=== PATIENT | male | born 1945 | race Caucasian/White ===

== ENCOUNTER 2021-09-23 09:01 | Outpatient (REF) | payer OTHER, SELFPAY ==
--- NOTE | ~2021-09-23 | XR_ITS ---
EXAMINATION: XR CLAVICLE, RIGHT CLINICAL INFORMATION: Pain and swelling status-post fall. COMPARISON: None TECHNIQUE: Straight AP and cephalad angulated AP views of the right clavicle. FINDINGS: Bony alignment and mineralization are normal. The right glenohumeral joint is intact. The right acromioclavicular and coracoclavicular intervals are normal. There is mild osteoarthritic change of the acromioclavicular joint. Minimal ossific fragments are noted adjacent to the acromioclavicular joint, which are likely degenerative given the absence of donor sites. Less likely, these could represent minimal avulsion fragments. There is focal soft tissue swelling adjacent to the acromioclavicular joint. No foreign body is seen. There is no right pneumothorax. XR/XR clavicle RT IMPRESSION: There is mild osteoarthritic change of the right acromioclavicular joint. Minimal calcific densities adjacent to the right acromioclavicular joint are likely degenerative in origin, with tiny avulsion fragments considered less likely. Please correlate clinically. No acromioclavicular or coracoclavicular separation injury is noted. There is soft tissue swelling adjacent to the right acromioclavicular joint.
== END 2021-09-23 09:02 | disposition home or self-care (01) ==
LOC: HO.XRAY 09:01
PROVIDERS: PCP Family Medicine; Visit Provider Family Medicine
DX: M25.511 Pain in right shoulder (principal); R60.0 Localized edema
CPT/HCPCS: 73000

== ENCOUNTER 2022-02-27 06:25 | Day surgery (SDC) | payer OTHER, SELFPAY ==
--- NOTE | 2022-02-26 10:09 | P.CONAN_ITS ---
Documented by User: Christen Johns NP 02/26/22 10:09 HPI - Anesthesia Eval Consult details Narrative: 77yo M for Colonoscopy [facility] Past Medical History Medical History (Updated 02/26/22 @ 08:14 by Phillip Reyez RN) Colon polyps COPD, mild GERD (gastroesophageal reflux disease) Surgical History Surgical History (Updated 02/26/22 @ 08:15 by Phillip Reyez RN) History of appendectomy History of colonoscopy History of meniscectomy of right knee Social History Social History (Updated 02/26/22 @ 08:19 by Phillip Reyez RN) Patient Tobacco Use Status: Former Tobacco user Use of substances other than those prescribed or required for medical reasons: No Are you DNR?: No Advance Directives: No Advance Directives Information Provided: Yes Meds Allergies Allergy/AdvReac Type Severity Reaction Status Date / Time Cephalosporins Allergy Severe Anaphylaxis Verified 02/27/22 06:45 Home Medications Medication Instructions Recorded Confirmed Last Taken Type omeprazole 20 mg capsule,delayed 20 mg PO DAILY 02/26/22 02/26/22 Unknown History release trazodone 100 mg tablet 1 tab PO BEDTIME 02/26/22 02/26/22 Unknown History Exam Exam Date and Time: February 26, 2022 1009 Assessment and Plan Assessment Anesthesia Assessment: Chart Reviewed Documented by User: Joseluis Martin MD 02/27/22 07:28 [facility] Past Medical History Medical History (Updated 02/26/22 @ 08:14 by Phillip Reyez RN) Colon polyps COPD, mild GERD (gastroesophageal reflux disease) Family History Family history of problems with anesthesia: No Surgical History Surgical History (Updated 02/26/22 @ 08:15 by Phillip Reyez RN) History of appendectomy History of colonoscopy History of meniscectomy of right knee History of Problems with Anesthesia: No Social History Social History (Updated 02/26/22 @ 08:19 by hPillip Reyez RN) Patient Tobacco Use Status: Former Tobacco user Use of substances other than those prescribed or required for medical reasons: No Are you DNR?: No Advance Directives: No Advance Directives Information Provided: Yes Meds Allergies Allergy/AdvReac Type Severity Reaction Status Date / Time Cephalosporins Allergy Severe Anaphylaxis Verified 02/27/22 06:45 Home Medications Medication Instructions Recorded Confirmed Last Taken Type omeprazole 20 mg capsule,delayed 20 mg PO DAILY 02/26/22 02/26/22 Unknown History release trazodone 100 mg tablet 1 tab PO BEDTIME 02/26/22 02/26/22 Unknown History Exam Airway Mallampati Class: II TM Dist: >3cm Neck ROM: Full Loose/Missing/Broken Teeth: No Heart: rrr Lungs: clear Assessment and Plan Final Anesthetic Review Family History of Problems with Anesthesia: No History of Problems with Anesthesia: No NPO: Yes ASA Class: II Final Preanesthetic Review: No Changes in Pt Med Stat, Meds/Allgs Chart Reviewed, Consent Obtained/Reviewed and Anes Risks/Benef Reviewed Patient Risk: Intermediate Procedure Risk: Low Anesthetic Plan Anesthetic Plan: MAC: Disposition: Standard PACU
[2022-02-27 06:31] VITALS: BMI 27.2
[2022-02-27 06:38] VITALS: BP 127/81; PULSE 90; RESP 16; TEMP 36; O2SAT 97
[2022-02-27] MEDS: Lactated Ringers 1,000 ML 100 ML IVCONT (06:55)
--- NOTE | 2022-02-27 07:24 | P.HPSUR_ITS ---
Pre-Procedural Eval Section A Date of Service: 02/27/22 Section B Chief Complaint: Encounter for screening for malignant neoplasm of Details of Present Illness: seeH&P no changes Relevant Family History (Specify if Yes): No Relevant Social History: None Present Medications: see Short Stay Collaborative assessment Medical History: No relevant PMH History of Previous Operations: Relevant previous surgery/procedure and date(s) (see H&P no changes) Allergies: Allergies Allergy/AdvReac Type Severity Reaction Status Date / Time Cephalosporins Allergy Severe Anaphylaxis Verified 02/27/22 06:45 Review of Systems Sugical H&P ROS: Negative: Constitution, Cardiovascular, Respiratory, Neurological, Psychiatric, Hem-Onc, Allergic/Immunologic, Gastrointestinal, Genitourinary, Musculoskeletal, Integumentary, Endocrine and Eyes/Ears/Nose/Thr oat Exam Surgical H&P Exam: Normal: HEENT, Normal: Heart, Normal: Lungs, Normal: Extremities, Normal: Abdomen, Normal: Skin and Normal: Neurological Plan Diagnosis/Plan: Unchanged I have reviewed the history and physical and performed a pertinent physical examination on my patient. No changes have occurred unless specified.
[2022-02-27 08:20] VITALS: BP 117/64; PULSE 71; RESP 16; TEMP 37.2; O2SAT 98
--- NOTE | 2022-02-27 08:26 | P.BOP_ITS ---
Brief Operative Note Date of Service: 02/27/22 Pre-op diagnosis: screening Post-op diagnosis: same Procedure: colonoscopy Surgeon: Adi Lew Anesthesia: MAC Was an Vp Product Management used for this Procedure?: No Estimated blood loss (mL): 5 Pathology: other Condition: stable Disposition: PACU
[2022-02-27 08:35] VITALS: BP 124/69; PULSE 73; RESP 16; TEMP 36.3; O2SAT 98
--- NOTE | 2022-02-27 09:57 | OP_ITS ---
SURGEON: Adi Lew MD INDICATIONS: Colon cancer screening and prior history of adenomatous colon polyps. PREOPERATIVE DIAGNOSIS: POSTOPERATIVE DIAGNOSIS: PROCEDURE PERFORMED: Colonoscopy to the neoterminal ileum with snare polypectomy and biopsy. ESTIMATED BLOOD LOSS: COMPLICATIONS: ANESTHESIA: Monitored anesthesia care. ASSISTANTS: SPECIMENS: DESCRIPTION OF PROCEDURE: The procedure was performed on 02/27/2022. A history and physical performed the risks and benefits of the procedure were explained to the patient, and an informed consent was obtained. The patient was placed in the left lateral decubitus position. A digital rectal exam was performed and was found to be normal. The Olympus pediatric video colonoscope was introduced into the rectum and advanced to the neoterminal ileum. Examination was performed. The scope was removed. He tolerated the procedure well and was taken to recovery area in stable condition. FINDINGS: There was a patent ileocolonic anastomosis at about 80 cm with no evidence of stricturing or inflammatory change on the colonic aspect of this 4 polyps, which were removed using combination of biopsy forceps and snare, all measured less than 10 mm. Three other polyps were identified and removed with snare and biopsy forceps measuring less than 10 mm. These were located at 45 cm, 20 cm and in the rectum. The quality of the prep was good. There was no evidence of carcinoma. Retroflexed examination was normal. IMPRESSION: Colon polyps. RECOMMENDATION: Follow up the biopsy results. MD GHAZALA Duke/ENDY / [id number]
== END 2022-02-27 09:03 | disposition home or self-care (01) ==
PROVIDERS: PCP Family Medicine; Visit Provider Internal Medicine Gastroenterology
PROC: 0DJD8ZZ Inspection of Lower Intestinal Tract, Via Natural or Artificial Opening Endoscopic (ICD-10-PCS; CPT 45378; principal; 2022-02-27 07:30)
DX: Z12.11 Encounter for screening for malignant neoplasm of colon (principal); Z86.010 Personal history of colon polyps; D12.4 Benign neoplasm of descending colon; D12.5 Benign neoplasm of sigmoid colon; K62.1 Rectal polyp; Z98.0 Intestinal bypass and anastomosis status; K21.9 Gastro-esophageal reflux disease without esophagitis; J44.9 Chronic obstructive pulmonary disease, unspecified; Z79.899 Other long term (current) drug therapy; Z87.891 Personal history of nicotine dependence; Z98.890 Other specified postprocedural states; Z90.49 Acquired absence of other specified parts of digestive tract; Z79.1 Long term (current) use of non-steroidal anti-inflammatories (NSAID)
CPT/HCPCS: 45385; 45380; 88305; 88341; 88342

== ENCOUNTER 2022-11-20 09:08 | Outpatient (REF) | payer MEDICARE, SELFPAY ==
[2022-11-20 11:16] LABS: MANUAL DIFF FLAG NO
[2022-11-20 11:35] LABS: Basophils Percent Auto 0.4 % (0-2); Eosinophils Percent Auto 0.3 % (0-4); Hematocrit 43.5 % (42.0-52.0); Hemoglobin 14.8 g/dl (14.0-18.0); Imm Gran Abs Auto 0.03 X10*3/uL (0.00-0.03); Imm Gran Pct Auto 0.4 % (0.0-0.4); Lymphocytes Percent Auto 13.8 % (20-40); Mean Corpuscular Hemoglobin 32.4 pg (27.0-33.0); Mean Corpuscular Volume 95.2 fL (80.0-98.0); Mean Platelet Volume 10.5 fL (9.4-12.4); Monocytes Absolute Auto 0.4 X10*3/uL (0.1-1.2); Monocytes Percent Auto 6.1 % (2-11); Neutrophils Absolute Auto 5.5 x10*3/uL (2.0-8.3); Platelet Count 209 X10*3/uL (160-400); Red Blood Count 4.57 X10*6/uL (4.60-5.80); Red Cell Distribution Width 12.8 % (11.0-16.0); White Blood Count 6.9 X10*3/uL (4.8-10.8)
[2022-11-20 12:14] LABS: Alanine Aminotransferase 27 U/L (0-40); Albumin Level 4.2 g/dL (3.5-5.0); Alkaline Phosphatase 50 U/L (39-117); Anion Gap 11 (12-20); Aspartate Amino Transferase 22 U/L (5-37); Bilirubin Total 0.7 mg/dL (0.0-1.0); Blood Urea Nitrogen 17 mg/dL (9-16); Calcium 9.2 mg/dL (8.4-10.2); Carbon Dioxide 24 mmol/L (22-29); Chloride 108 mmol/L (96-108); Estimated Glomerular Filt Rate > 60; Glucose Random 111 mg/dL (60-115); Potassium 4.2 mmol/L (3.3-5.1); Sodium 139 mmol/L (135-145); Total Protein 6.6 g/dL (6.5-8.0)
[2022-11-20 13:36] LABS: Prostate Specific Antigen Scr 1.39 ng/mL (<0.05-4.0)
== END 2022-11-20 09:09 | disposition home or self-care (01) ==
LOC: HO.WFDLDS 09:08
PROVIDERS: Visit Provider Family Medicine
DX: Z12.5 Encounter for screening for malignant neoplasm of prostate (principal); N40.0 Benign prostatic hyperplasia without lower urinary tract symptoms; G62.9 Polyneuropathy, unspecified
CPT/HCPCS: 36415; 80053; 84153; 85025

== ENCOUNTER 2024-08-16 09:00 | Outpatient (REF) | payer MEDICARE, SELFPAY ==
[2024-08-16 09:43] LABS: MANUAL DIFF FLAG NO
[2024-08-16 10:04] LABS: Basophils Absolute Auto 0.1 X10*3/uL (0.0-0.2); Basophils Percent Auto 0.9 % (0-2); Eosinophils Absolute Auto 0.1 X10*3/uL (0.0-0.4); Eosinophils Percent Auto 2.6 % (0-4); Hematocrit 43.9 % (42.0-52.0); Hemoglobin 14.7 g/dl (14.0-18.0); Imm Gran Abs Auto 0.02 X10*3/uL (0.00-0.03); Imm Gran Pct Auto 0.4 % (0.0-0.4); Lymphocytes Absolute Auto 1.1 X10*3/uL (1.2-4.9); Lymphocytes Percent Auto 19.9 % (20-40); Mean Corpuscular HGB Conc 33.5 g/dl (31.0-36.0); Mean Corpuscular Hemoglobin 32.1 pg (27.0-33.0); Mean Corpuscular Volume 95.9 fL (80.0-98.0); Mean Platelet Volume 10.2 fL (9.4-12.4); Monocytes Absolute Auto 0.4 X10*3/uL (0.1-1.2); Monocytes Percent Auto 7.7 % (2-11); Neutrophils Absolute Auto 3.7 x10*3/uL (2.0-8.3); Neutrophils Percent Auto 68.5 % (45-73); Platelet Count 215 X10*3/uL (160-400); Red Blood Count 4.58 X10*6/uL (4.60-5.80); Red Cell Distribution Width 13.5 % (11.0-16.0); White Blood Count 5.4 X10*3/uL (4.8-10.8)
[2024-08-16 11:43] LABS: Alanine Aminotransferase 36 U/L (0-40); Albumin Level 4.5 g/dL (3.5-5.0); Alkaline Phosphatase 58 U/L (39-117); Anion Gap 11 (12-20); Aspartate Amino Transferase 32 U/L (5-37); Blood Urea Nitrogen 15 mg/dL (9-16); Calcium 9.1 mg/dL (8.4-10.2); Carbon Dioxide 29 mmol/L (22-29); Chloride 104 mmol/L (96-108); Estimated Glomerular Filt Rate > 60; Glucose Random 102 mg/dL (60-115); Potassium 4.4 mmol/L (3.3-5.1); Sodium 140 mmol/L (135-145)
[2024-08-16 11:54] LABS: Prostate Specific Antigen Scr 2.04 ng/mL (<0.05-4.0)
[2024-08-16 12:00] LABS: Thyroid Stimulating Hormone 2.82 uIU/mL (0.32-4.0)
[2024-08-21 17:03] LABS: Testosterone, Total 333 ng/dL (250-1100)
== END 2024-08-16 09:01 | disposition home or self-care (01) ==
LOC: HO.10HDL 09:00
PROVIDERS: Visit Provider Family Medicine
DX: R06.02 Shortness of breath (principal); R53.83 Other fatigue; N52.9 Male erectile dysfunction, unspecified; Z12.5 Encounter for screening for malignant neoplasm of prostate
CPT/HCPCS: 36415; 80053; 84153; 84402; 84403; 84443; 85025

== ENCOUNTER 2025-02-28 09:42 | Outpatient (AMB) | payer MEDICARE, SELFPAY ==
--- NOTE | 2025-02-28 09:47 | A.OFFPC_ITS ---
Vital Signs 02/28/25 09:50 Height 6 ft 3 in Weight 215 lb BMI 26.9 BP 122/74 Blood Pressure Location Lt brachial Position Sitting Pulse 100 Pulse Source Pulse Oximeter Temp 97.9 F Temp Source Temporal Artery Scan Pulse Oximetry (%) 98 Oxygen Delivery Method Room Air Intake Visit Reasons: 6 MO F/UP - [place] PT - PT IS A PHYSICIAN Mail Sorting Supervisor Required: No Accompanied by: Self / Same As Patient Allergies Cephalosporins Allergy (Severe, Verified 02/28/25 09:54) Anaphylaxis Medication List - Last Reconciled 02/28/25 by GERALD Carey lorazepam 1 mg PO BEDTIME PRN omeprazole 20 mg PO DAILY trazodone 100 mg PO BEDTIME Tobacco use date assessed: 02/28/25 Fall risk assessment: No Falls in past year Last assessed Fall Risk: 02/28/25 Dental Screening Dental Screen Date: 02/28/25 Did you have a dental visit in the last 12 months?: Yes Did you have a dental problem in the last 6 months where you did not have access to dental care?: No HPI HPI Comments History of Present Illness Details History of Present Illness The patient is an 80 year old male with GERD, Insomnia and osteoarthritis presenting to [facility] with a new provider for general health maintenance and medication review. The patient reports being in generally good health. The patient takes omeprazole every night for reflux and trazodone nightly for sleep. The patient also uses lorazepam as needed, about two to three times a month, for sleep and denies any side effects such as dizziness or falls. He states he has about 20 pills at home and will not need a refill for several months. The patient has a history of mild chronic obstructive pulmonary disease secondary to a 40-year smoking history of two packs per day, having quit 15 years ago. Symptoms include mild dyspnea on exertion and mild chronic bronchitis, which have not worsened and are not managed with medication. The patient also reports chronic constipation, which is managed with psyllium fiber and increased fluid intake. Regarding musculoskeletal health, the patient has degenerative joint disease and underwent a right knee replacement five weeks ago due to osteoarthritis done by [facility]. The patient is attending physical therapy twice a week and is progressively improving. The patient also reports generalized joint pain, attributed to age, but remains active with golf, pickleball, and hiking. For health maintenance, the patient's last lab work was in July and was normal. The patient had a colonoscopy in [address] Lew that showed polyps, and a repeat procedure was recommended. The patient plans to schedule the follow-up colonoscopy in early 2025 after recovering from knee surgery. Ophthalmologic history includes cataract surgery 5-6 years ago and retinal bleeds, for which the patient is followed by a retina specialist every few months and an instructor of sociology annually. Medical History: - Gastroesophageal reflux disease - Insomnia - History of colon polyps - Osteoarthritis - History of retinal bleeds - Mild chronic obstructive pulmonary dis ease - Chronic constipation - 40-year history of smoking, quit 15 ye ars ago Surgical History: - Knee replacement 5 weeks ago - Cataract surgery 5-6 years ago - Colonoscopy in 2021 Medications: - Omeprazole, taken every night for refl ux - Trazodone, taken every night for sleep - Lorazepam, taken as needed two or thre e times a month for sleep Health Maintenance Orders for lab work, including a PSA test as requested, will be placed. We discussed the importance of scheduling a follow-up colonoscopy due to a history of polyps, which the patient plans to do early next year. A follow-up visit is scheduled for six months, with instructions to call sooner if any issues arise. Social History - Substance Use: The patient smoked two packs of cigarettes per day for 40 years and quit 15 years ago. - Activity Level: The patient is active, participating in golf, pickleball, and hiking. - Functional Status: The patient attends physical therapy twice a week following a recent knee replacement. - Pharmacy: The patient uses the [facility] on [facility] in [place]. Results - Labs: Lab work from July was normal. - Procedures: A colonoscopy in 2021 reve aled polyps. Patient was informed and verbally consented to the use of an ambient scribe for clinic note documentation during this visit. [facility] Medical History (Updated 02/28/25 @ 10:24 by GERALD Carey) Colon polyps COPD, mild GERD (gastroesophageal reflux disease) Health care maintenance Insomnia Surgical History History of appendectomy History of colonoscopy History of meniscectomy of right knee Family History (Updated 02/28/25 @ 09:56 by Diamond Hardy MA) Mother No problems noted. Father No problems noted. Social History Housing: House Patient Tobacco Use Status: Former Tobacco user e-Cigarette/Vaping Use: Former Use service: No Current occupational status: retired Cognitive needs: No Hearing needs: No Vision needs: Yes (rx glasses) Questionnaire PHQ-9 Over the last 2 weeks, how often have you been bothered by any of the following problems? 1. Little interest or pleasure in doing things: not at all 2. Feeling down, depressed, or hopeless: not at all 3. Trouble falling or staying asleep, or sleeping too much: not at all 4. Feeling tired or having little energy: not at all 5. Poor appetite or overeating: not at all 6. Feeling bad about yourself - or that you are a failure or have let yourself or your family down: not at all 7. Trouble concentrating on things, such as reading the newspaper or watching television: not at all 8. Moving or speaking so slowly that other people could have noticed. Or the opposite - being so fidgety or restless that you have been moving around a lot more than usual: not at all 9. Thoughts that you would be better off or of hurting yourself in some way: not at all Total score: 0 Depression Screening Interpretation: Negative Depression Screening Done: Yes Source: Developed by Drs. Frank Mascorro, Amanda Howe, Brian Lindsay and colleagues, with an educational gloria from [employer]. Thrive Questionnaire Date Thrive assessed: 02/28/25 I am a: Patient Within the past 12 months, did the food you bought not last and you didn't have the money to get more?: Never true Within the past 12 months, did you worry whether your food would run out before you got money to buy more?: Never true Do you have trouble paying for medicines?: No Do you have trouble getting transportation to medical appointments?: No Do you have trouble paying your heating and electricity bill?: No Do you have trouble taking care of your child, family member or friend?: No Do you have trouble with day-to-day activities such as bathing, preparing meals, shopping, managing finances, etc.?: No Are you currently unemployed and looking for a job?: No Are you interested in more education?: No THRIVE Score: 0 AUDIT C Alcohol Use Questionnaire (AUDIT-C) 1. How often do you have a drink containing alcohol?: Monthly or less 2. How many drinks containing alcohol do you have on a typical day when you are drinking?: 3 or 4 3. How often do you have six or more drinks on one occasion?: Never Total Score: 2 JOSE CARLOS-7 AMB Questionnaire JOSE CARLOS-7 Date JOSE CARLOS - 7 assessed: 02/28/25 Feeling nervous, anxious, or on edge: 0 = Not at all Not being able to stop or control worryin = Not at all Worrying too much about different things: 0 = Not at all Trouble relaxin = Not at all Being so restless that it is hard to sit still: 0 = Not at all Becoming easily annoyed or irritable: 0 = Not at all Feeling afraid as if something awful might happen: 0 = Not at all Total JOSE CARLOS-7 score (0-4 normal; 5-9 mild; 10-14 moderate; 15-21 severe): 0 Source: Developed by Drs. Frank Mascorro, Amanda Howe, Brian Lindsay and colleagues, with an educational gloria from [employer]. Review of Systems Narrative Review of Systems - Eyes: Denies vision problems at a distance but requires reading glasses. - Ears, Nose, Throat: Denies hearing problems. - Cardiovascular: Denies chest pain. - Respiratory: Reports mild dyspnea on exertion. Denies cough. - Gastrointestinal: Reports chronic constipation. Denies diarrhea. - Musculoskeletal: Reports generalized pain in all joints. - Neurological: Denies dizziness or falls. Physical exam (Primary Care) Vital Signs: Last Vital Signs Temp 97.9 F 02/28/25 09:50 Pulse 100 02/28/25 09:50 BP 122/74 02/28/25 09:50 Pulse Ox 98 02/28/25 09:50 Oxygen Delivery Method Room Air 02/28/25 09:50 BMI result Body Mass Index 26.9 GENERAL Well developed, Well nourished, in no apparent distress HEENT Head-Normocephalic Eyes- PERRLA, EOMI, Conjuctiva clear, lids WNL Ears- Canals clear, TMs WNL Mouth/Throat-No lesions, no erythema, no exudate Neck- Supple, No lymphadenopathy, thyroid WNL RESPIRATORY Normal I:E, mild rhonchi, no rales or wheezes CARDIOVASCULAR Regular, rate and rhythm, No murmurs or rubs GASTROINTESTINAL Soft, nontender, normal bowel sounds, no masses MUSCULOSKELETAL Joints- right knee- swelling noted, nontender, DTR 2+ NEUROLOGICAL Gait normal PSYCHIATRIC Oriented to person, place and time Mood and affect WNL Appearance WNL Speech WNL Thought processes WNL Tobacco/Smoking Status: Tobacco use Status Tobacco use date assessed 02/28/25 02/28/25 09:48 Patient Tobacco Use Status Former Tobacco user 02/28/25 09:48 e-Cigarette/Vaping Use Former Use 02/28/25 09:48 PHQ-9: PHQ-9 Score PHQ-9: Total score 0 02/28/25 09:56 Depression Screening Interpretation: Negative Thrive Assessment: Date of Thrive Assessment Date Thrive assessed 02/28/25 02/28/25 09:48 Coding Level of Care Code New Pt Complex visit Add On G2211 Patient Type New Diagnoses GERD (gastroesophageal reflux disease) K21.9 COPD, mild J44.9 Adjustment insomnia F51.02 Insomnia type: adjustment Colon polyps K63.5 Colon location: unspecified part of colon Time Spent (min) 30 Comment Time was spent on chart review, Medication reconciliation, H&P, patient education, orders. Assessment & Plan Assessment & Plan (1) GERD (gastroesophageal reflux disease): Code(s): K21.9 - Gastro-esophageal reflux disease without esophagitis Category: Medical Plan: Controlled with Omeprazole (2) COPD, mild: Code(s): J44.9 - Chronic obstructive pulmonary disease, unspecified Category: Medical Plan: Will watch for now. (3) Insomnia: Code(s): G47.00 - Insomnia, unspecified Category: Medical Qualifiers: Insomnia type: adjustment Qualified Code(s): F51.02 - Adjustment insomnia Plan: Will continue Trazodone and Lorazepam as needed (4) Colon polyps: Code(s): K63.5 - Polyp of colon Category: Medical Qualifiers: Colon location: unspecified part of colon Plan: Patient to call GI and schedule follow up colonoscopy Plan Plan Patient was informed and verbally consented to the use of an ambient scribe for clinic note documentation during this visit. 1. Gastroesophageal Reflux Disease The patient's GERD is stable and well-managed. A prescription for omeprazole will be sent to the pharmacy to continue nightly use. 2. Insomnia And Anxiety The patient's sleep and anxiety are managed with nightly trazodone and as-needed lorazepam. A prescription for trazodone will be refilled. The lorazepam will not be refilled at this time as the patient has a sufficient supply. 3. Mild Chronic Obstructive Pulmonary Disease The patient's mild COPD is stable with mild dyspnea on exertion and does not require medication. The plan is to continue monitoring without any new interventions at this time. 4. Chronic Constipation The patient's chronic constipation is self-managed with fiber and fluids. The plan is to continue with the current management. 5. Osteoarthritis The patient is recovering from a recent knee replacement due to osteoarthritis and reports generalized arthralgias. The plan is for the patient to continue with physical therapy as scheduled. Discussion Notes I have ordered lab work for the patient, which will include a PSA test as requested. I will send prescriptions for omeprazole and trazodone to the patient's preferred pharmacy, [facility]. We will hold off on refilling the lorazepam as the patient reported having a 8-10 month supply. We discussed the importance of following up on the recommended repeat colonoscopy, and the patient agreed to schedule this for early next year after recovering from recent knee surgery. I advised the patient to schedule a follow-up appointment in six months but to contact the office sooner if any concerns arise. Patient Instructions - Please proceed to the lab for a blood draw. The orders have been placed in the system. - New prescriptions for omeprazole and trazodone will be sent to your pharmacy, [facility] on [facility]. - Continue taking your lorazepam as you have been. You have enough supply for now, so a refill was not sent. - Remember to schedule your follow-up colonoscopy for early next year. - Continue with your physical therapy for your knee. - Please schedule a follow-up visit with our office in six months. 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 - Call our office if you have any questions or new problems before your next appointment. Orders: Orders Comprehensive Met. Panel Today J44.9 - Chronic obstructive pulmonary disease, unspecified, K21.9 - Gastro-esophageal reflux disease without esophagitis, Z00.00 - Encounter for general adult medical examination without abnormal findings Complete Blood Count no Diff Today Z00.00 - Encounter for general adult medical examination without abnormal findings TSH reflex Free T4 Today K21.9 - Gastro-esophageal reflux disease without esophagitis, Z00.00 - Encounter for general adult medical examination without abnormal findings PSA, Ultra Sensitive Today Z12.5 - Encounter for screening for malignant neoplasm of prostate Vitamin D 25-OH Total Today Z00.00 - Encounter for general adult medical examination without abnormal findings Medications: New omeprazole 20 mg PO DAILY 90 caps 3RF for GERD Changed From trazodone 1 tab PO BEDTIME To trazodone 100 mg PO BEDTIME 90 tabs 2RF for sleep
[2025-02-28 09:50] VITALS: BP 122/74; PULSE 100; TEMP 36.6; O2SAT 98; BMI 26.9
== END 2025-02-28 10:13 | disposition home or self-care (01) ==
LOC: HO.HMCHD 09:42
PROVIDERS: PCP Family Medicine; Visit Provider Physician Assistant Medical
DX: K21.9 Gastro-esophageal reflux disease without esophagitis (principal); J44.9 Chronic obstructive pulmonary disease, unspecified; F51.02 Adjustment insomnia; K63.5 Polyp of colon

== ENCOUNTER 2025-02-28 10:14 | Outpatient (REF) | payer MEDICARE, SELFPAY ==
[2025-02-28 13:43] LABS: Hematocrit 40.6 % (42.0-52.0); Hemoglobin 13.6 g/dl (14.0-18.0); Mean Corpuscular HGB Conc 33.5 g/dl (31.0-36.0); Mean Corpuscular Hemoglobin 32.2 pg (27.0-33.0); Mean Corpuscular Volume 96.0 fL (80.0-98.0); NRBC Abs Auto 0.000 X10*3/uL (0.0-0.012); NRBC Pct Auto 0.0 /100WBC (0.0-0.2); Platelet Count 242 X10*3/uL (160-400); Red Blood Count 4.23 X10*6/uL (4.60-5.80); White Blood Count 6.8 X10*3/uL (4.8-10.8)
[2025-02-28 14:31] LABS: Anion Gap 15 (12-20); Calcium 9.1 mg/dL (8.4-10.2); Carbon Dioxide 24 mmol/L (22-29); Chloride 107 mmol/L (96-108); Potassium 4.5 mmol/L (3.3-5.1); Sodium 141 mmol/L (135-145); Total Protein 6.7 g/dL (6.5-8.0)
[2025-02-28 14:47] LABS: Alanine Aminotransferase 20 U/L (0-40); Albumin Level 4.6 g/dL (3.5-5.0); Alkaline Phosphatase 79 U/L (39-117); Aspartate Amino Transferase 21 U/L (5-37); Blood Urea Nitrogen 20 mg/dL (9-16); Estimated Glomerular Filt Rate 56
[2025-03-07 02:38] LABS: PSA, Ultra Sensitive 1.70 ng/mL
== END 2025-02-28 10:15 | disposition home or self-care (01) ==
LOC: HO.10HDL 10:14
PROVIDERS: Visit Provider Physician Assistant Medical
DX: Z00.00 Encounter for general adult medical examination without abnormal findings (principal); K21.9 Gastro-esophageal reflux disease without esophagitis; J44.9 Chronic obstructive pulmonary disease, unspecified; Z12.5 Encounter for screening for malignant neoplasm of prostate; Z13.29 Encounter for screening for other suspected endocrine disorder; Z13.21 Encounter for screening for nutritional disorder
CPT/HCPCS: 36415; 80053; 82306; 84153; 84443; 85027

== ENCOUNTER 2025-03-27 10:15 | Outpatient (AMB) | payer MEDICARE, SELFPAY ==
[2025-03-27 10:19] VITALS: BP 128/76; PULSE 99; TEMP 36.3; O2SAT 99; BMI 26.4
--- NOTE | 2025-03-27 10:19 | A.OFFPC_ITS ---
Vital Signs 03/27/25 10:19 Height 6 ft 3 in Weight 211 lb BMI 26.4 BP 128/76 Blood Pressure Location Lt brachial Position Sitting Pulse 99 Pulse Source Pulse Oximeter Temp 97.4 F Temp Source Temporal Artery Scan Pulse Oximetry (%) 99 Oxygen Delivery Method Room Air Intake Visit Reasons: cough Senior Administrative Support Required: No Accompanied by: Self / Same As Patient Allergies Cephalosporins Allergy (Severe, Verified 03/27/25 10:19) Anaphylaxis Medication List - Last Reconciled 05/01/25 by GERALD Carey azithromycin (Zithromax Z-Mil) For 250 mg dose pack: take 500 mg today (day 1), then 250 mg for 4 days (days 2-5) PO budesonide-formoterol 80-4.5 mcg/actuation (Symbicort) 2 puffs inhalation BID lorazepam 1 mg PO BEDTIME PRN omeprazole 20 mg PO DAILY prednisone 20 mg PO BID 5 days trazodone 100 mg PO BEDTIME Tobacco use date assessed: 03/27/25 Fall risk assessment: No Falls in past year Last assessed Fall Risk: 03/27/25 Dental Screening Dental Screen Date: 03/27/25 Did you have a dental visit in the last 12 months?: Yes Did you have a dental problem in the last 6 months where you did not have access to dental care?: No HPI HPI Comments History of Present Illness Details 80 year old male with GERD, COPD, Insomn ia and osteoarthritis here today in urgent visit for cough. He has a history of COPD but is not currently using any medication for this. He states the cough started a week or so ago. It is intermittently productive. He denies fever. He has been having some shortness of breath. He tried OTC cold medication with only mild relief. [facility] Medical History Insomnia Health care maintenance Colon polyps GERD (gastroesophageal reflux disease) COPD, mild Surgical History History of meniscectomy of right knee History of appendectomy History of colonoscopy Family History Mother No problems noted. Father No problems noted. Social History (Reviewed 03/27/25 @ 10:19 by FREDA King Housing: House Patient Tobacco Use Status: Former Tobacco user e-Cigarette/Vaping Use: Former Use service: No Current occupational status: retired Cognitive needs: No Hearing needs: No Vision needs: Yes (rx glasses) Questionnaire Thrive Questionnaire Date Thrive assessed: 02/28/25 JOSE CARLOS-7 AMB Questionnaire JOSE CARLOS-7 Date JOSE CARLOS - 7 assessed: 02/28/25 Source: Developed by Drs. Frank Mascorro, Amanda Howe, Brian Lindsay and colleagues, with an educational gloria from [employer]. Review of Systems Narrative CONSTITUTIONAL No fever HEAD/NECK No headache EAR/NOSE/MOUTH/THROAT No sore throat, ear pain or nasal congestion RESPIRATORY intermittent productive cough Shortness of breath CARDIOVASCULAR Negative GASTROINTESTINAL Negative NEUROLOGICAL Negative PSYCHIATRIC Negative Physical exam (Primary Care) Vital Signs: Last Vital Signs Temp 97.4 F 03/27/25 10:19 Pulse 99 03/27/25 10:19 BP 128/76 03/27/25 10:19 Pulse Ox 99 03/27/25 10:19 Oxygen Delivery Method Room Air 03/27/25 10:19 BMI result Body Mass Index 26.4 GENERAL Well developed, Well nourished, in no apparent distress HEENT Head-Normocephalic Ears- Canals clear, TMs WNL Mouth/Throat-No lesions, mils erythema, no exudate Neck- Supple, No lymphadenopathy, thyroid WNL RESPIRATORY Normal I:E, Rhonchi with wheezing, no rales CARDIOVASCULAR Regular, rate and rhythm, No murmurs or rubs NEUROLOGICAL Gait normal PSYCHIATRIC Oriented to person, place and time Mood and affect WNL Appearance WNL Speech WNL Thought processes WNL Tobacco/Smoking Status: Tobacco use Status Tobacco use date assessed 03/27/25 03/27/25 10:19 Patient Tobacco Use Status Former Tobacco user 03/27/25 10:19 e-Cigarette/Vaping Use Former Use 03/27/25 10:19 Thrive Assessment: Date of Thrive Assessment Date Thrive assessed 02/28/25 03/27/25 10:19 Coding Level of Care Code Established Pt Est Pt Level 3 (70051) Established Pt Add On Problem Visit Only Patient Type Established Diagnoses COPD (chronic obstructive pulmonary disease) with acute bronchitis J44.0; J20.9 Time Spent (min) 25 Comment Ophelia spent on H&P, Patient education and orders Assessment & Plan Assessment & Plan (1) COPD (chronic obstructive pulmonary disease) with acute bronchitis: Code(s): J44.0 - Chronic obstructive pulmonary disease with (acute) lower respiratory infection; J20.9 - Acute bronchitis, unspecified Plan: Will treat for Bronchitis with Zithromax. Will give Prednisone for COPD exacerbation. Will add Dulera inhaler for COPD control. Patient to increase fluids. Patient to follow up as needed if symptoms persist or worsen. Medications: New prednisone 20 mg PO BID 10 tabs 0RF 5 days mometasone-formoterol 100-5 mcg/actuation (Dulera) 2 puffs inhalation BID 8.8 grams 2RF azithromycin (Zithromax Z-Mil) For 250 mg dose pack: take 500 mg today (day 1), then 250 mg for 4 days (days 2-5) PO 6 tabs 0RF
== END 2025-03-27 10:42 | disposition home or self-care (01) ==
LOC: HO.HMCHD 10:15
PROVIDERS: PCP Physician Assistant Medical; Visit Provider Physician Assistant Medical
DX: J44.0 Chronic obstructive pulmonary disease with (acute) lower respiratory infection (principal); J20.9 Acute bronchitis, unspecified